=== PATIENT | male | born 1980 | race Caucasian/White ===

== ENCOUNTER 2019-02-17 21:04 | Emergency (ER) | payer OTHER ==
[2019-02-17 21:42] VITALS: PULSE 81
[2019-02-17] MEDS ORDERED: CIPROFLOXACIN HCL 500 MG TAB PO STA (22:13)
[2019-02-17] MEDS ORDERED: DIPH,PERTUS(ACELL)TETVAC-LF 0.5 ML VIAL IM ONE (22:13)
--- NOTE | 2019-02-17 22:38 | XR ---
EXAMINATION TYPE: XR foot complete LT DATE OF EXAM: 02/17/2019 COMPARISON: NONE HISTORY: Foreign body. Pain. TECHNIQUE: 3 views FINDINGS: There is a 15 x 5 mm linear area of metallic foreign bodies in the soft tissues at the plan tar aspect of the forefoot at the distal second metatarsal. I see no fracture nor dislocation. Metatarsals are intact. Joint spaces are normal. IMPRESSION: Multiple small metallic foreign bodies.
[2019-02-17] MEDS ORDERED: CEPHALEXIN 500MG STARTER PACK 4 CAP BTL PO STA (23:14)
[2019-02-17] MEDS ORDERED: CEPHALEXIN 500 MG CAP PO STA (23:14)
--- NOTE | 2019-02-17 23:15 | XR ---
EXAMINATION TYPE: XR foot complete LT DATE OF EXAM: 02/17/2019 COMPARISON: Today HISTORY: Foreign body TECHNIQUE: 3 views FINDINGS: There is persistent foreign body metallic linear tiny densities in the plantar aspect of th e forefoot in the soft tissues. There is no significant change compared to the recent exam. I see no fracture. There are plantar and Achilles calcaneal spurs. Metatarsals are intact. IMPRESSION: Foreign bodies unchanged. No fracture.
[2019-02-17] MEDS ORDERED: cefTRIAXone 1,000 MG VIAL (IM USE) IM STA (23:23)
--- NOTE | 2019-02-17 23:34 | ED ---
General Adult HPI - General Chief complaint: Extremity Injury, Lower Stated complaint: Feura Bush went threw foot, [facility] Time Seen by Provider: 02/17/19 22:13 Source: patient, RN notes reviewed Mode of arrival: ambulatory Limitations: no limitations - History of Present Illness Initial comments: 38-year-old male patient with the chief complaint of stepping on a bolt in the left foot. Patient reports that he was working, wearing work boots, stopped an exposed bolt which penetrated through the soles into the plantar aspect of his left foot. Patient reports this occurred approximate 4 PM today. Patient has a history of diabetes. Patient denies any other complaints. Does not know Date of last tetanus. Systemic: Pt denies fatigue, fever/chills, rash. Pt denies weakness, night sweats, weight loss. Neuro: Pt denies headache, visual disturbances, syncope or pre-syncope. HEENT: Pt denies ocular discharge or irritation, otalgia, rhinorrhea, pharyngitis or notable lymphadenopathy. Cardiopulmonary: Pt denies chest pain, SOB, heart palpitations, dyspnea on exertion. Abdominal/GI: Pt denies abdominal pain, n/v/d. : Pt denies dysuria, burning w/ urination, frequency/urgency. Denies new onset urinary or bowel incontinence. MSK: Pt denies myalgia, loss of strength or function in extremities. Neuro: Pt denies new onset weakness, paresthesias. - Related Data Previous Rx's Medication Instructions Recorded Cephalexin [Keflex] 500 mg PO Q6HR 7 Days #28 cap 02/17/19 Ciprofloxacin HCl [Cipro] 500 mg PO Q12HR 7 Days #14 day 02/17/19 Allergies Allergy/AdvReac Type Severity Reaction Status Date / Time No Known Allergies Allergy Verified 02/17/19 21:42 Review of Systems ROS Statement: Those systems with pertinent positive or pertinent negative responses have been documented in the HPI. ROS Other: All systems not noted in ROS Statement are negative. Past Medical History Past Medical History: Thyroid Disorder History of Any Multi-Drug Resistant Organisms: None Reported Past Surgical History: Cholecystectomy, Orthopedic Surgery Past Psychological History: No Psychological Hx Reported Smoking Status: Current every day smoker Past Alcohol Use History: None Reported Past Drug Use History: None Reported General Exam - General Exam Comments Initial Comments: Constitutional: NAD, AOX3, Pt has pleasant affect. HEENT: NC/AT, trachea midline, neck supple, no lymphadenopathy. Posterior pharynx non erythematous, without exudates. External ears appear normal, without discharge. Mucous membranes moist. Eyes PERRLA, EOM intact. There is no scleral icterus. No pallor noted. Cardiopulmonary: RRR, no murmurs, rubs or gallops, no JVD noted. Lungs CTAB in anterior and posterior grijalva. No peripheral edema. Abdominal exam: Abdomen soft and non-distended. Abdomen non-tender to palpation in all 4 quadrants. Bowel sounds active in LLQ. No hepatosplenomegaly. No ecchymosis Neuro: CN II-XII grossly intact. No nuchal rigidity. No raccon eyes, no andre sign, no hemotympanum. No cervical spinal tenderness. MSK: 1 x 1 cm area circular laceration. Skin flap, not open. Superficial metallic foreign bodies removed. There is irrigated with 1 L normal saline. No posterior calf tenderness bilaterally, homans sign negative bilaterally. Posterior tibialis and radial pulse +2 bilaterally. Sensation intact in upper and lower extremities. Full active ROM in upper and lower extremities, 5/5 stregnth. Limitations: no limitations Course Vital Signs 02/17/19 21:40 Temperature 99.0 F Pulse Rate 81 Respiratory 16 Rate Blood Pressure 134/86 O2 Sat by Pulse 95 Oximetry Medical Decision Making - Medical Decision Making 38-year-old male patient with the chief complaint of stepping on a bolt in the left foot. Patient reports that he was working, wearing work boots, stopped an exposed bolt which penetrated through the soles into the plantar aspect of his left foot. Patient reports this occurred approximate 4 PM today. Patient has a history of diabetes. Patient denies any other complaints. Does not know Date of last tetanus. Patient vital signs stable, afebrile. Physical exam displayed. 1 x 1 cm area circular laceration. Skin flap, not open. Vigorously irrigated. Superficial metallic foreign bodies removed. Plain film of foot displayed multiple metallic foreign bodies. After irrigation repeat film did not display significant change. Patient initiated on ciprofloxacin, cephalosporin. Patient ministered 1 g Rocephin in ED. As well as ciprofloxacin. Patient will discharge on outpatient ciprofloxacin and Keflex. Patient will have triggered return precautions for infection. This was described in depth. Patient will follow up with orthopedic consult tomorrow. And will return to ER if condition worsens. Case discussed with Dr. Knight. Disposition Clinical Impression: Soft tissues foreign body Disposition: HOME SELF-CARE Condition: Stable Instructions (If sedation given, give patient instructions): Soft Tissue Foreign Body (ED) Additional Instructions: Patient to adhere to previously discussed treatment plan and will take medication(s) as directed. Patient to follow up with PCP in 1-2 days. Patient to return to ED if symptoms do not improve. Follow-up with orthopedic consult tomorrow. Take antibiotics as directed. If any signs of infection develop return immediately to emergency department. Prescriptions: Ciprofloxacin HCl [Cipro] 500 mg PO Q12HR 7 Days #14 day Cephalexin [Keflex] 500 mg PO Q6HR 7 Days #28 cap Is patient prescribed a controlled substance at d/c from ED?: No Referrals: Ruslan Sparrow MD [Primary Care Provider] - 1-2 days Carroll Ibanez MD [STAFF PHYSICIAN] - 1-2 days
[2019-02-17 23:52] VITALS: BP 136/56; RESP 20; TEMP 98.2
== END 2019-02-17 23:50 | disposition home or self-care (01) ==
LOC: EC 21:04
DX: M79.5 Residual foreign body in soft tissue (principal); Z23 Encounter for immunization; E11.9 Type 2 diabetes mellitus without complications; F17.200 Nicotine dependence, unspecified, uncomplicated; W45.8XXA Other foreign body or object entering through skin, initial encounter; Y92.69 Other specified industrial and construction area as the place of occurrence of the external cause; Y99.0 Civilian activity done for income or pay
CPT/HCPCS: 73630; 90715; 99283; 10120; 90471; 96372; J0696

== ENCOUNTER 2020-09-23 09:36 | Emergency (ER) | payer OTHER ==
[2020-09-23 09:57] VITALS: PULSE 98; RESP 18; TEMP 98
--- NOTE | 2020-09-23 10:59 | XR ---
EXAMINATION TYPE: XR shoulder complete RT DATE OF EXAM: 09/23/2020 CLINICAL HISTORY: Fall injury with pain TECHNIQUE: Three views of the right shoulder are obtained. COMPARISON: None. FINDINGS: There is no acute fracture/dislocation evident in the right shoulder. The acromioclavicul ar and glenohumeral joint spaces appear within normal limits. Overlying clothing material is present IMPRESSION: There is no acute fracture or dislocation in the right shoulder.
--- NOTE | 2020-09-23 11:08 | CT ---
EXAMINATION TYPE: CT brain alphonso perez DATE OF EXAM: 09/23/2020 COMPARISON: NONE HISTORY: Injury with headache and neck pain CT DLP: 1932.8 mGycm. Automated Exposure Control for Dose Reduction was Utilized. TECHNIQUE: CT scan of the head and cervical spine are performed without contrast. FINDINGS: There is no acute intracranial hemorrhage, mass effect, or midline shift identified. The ventricles and sulci are within normal limits in size. The roth-white matter differentiation is main tained. The globes are intact and the visualized sinuses are clear. The calvarium is intact. Cervical spine is visualized in its entirety from C1 through upper thoracic levels and demonstrates s atisfactory alignment without evidence of acute fracture or dislocation. Prevertebral soft tissue ap pears within normal limits. The C1-C2 articulation is within normal limits on the coronal images. Ve rtebral body heights and disc space heights fairly well maintained. Overlying soft tissues are unrema rkable. Lung apices are clear. IMPRESSION: 1. There is no acute fracture or dislocation evident in the cervical spine. 2. No acute intracranial hemorrhage or midline shift is seen.
--- NOTE | 2020-09-23 11:12 | ED ---
Fall HPI - General Chief Complaint: Fall Stated Complaint: Head Injury Time Seen by Provider: 09/23/20 09:59 Source: patient Mode of arrival: ambulatory - History of Present Illness Initial Comments: 40-year-old male presenting to the ER today for chief complaint of fall. Patient states that he was on a scissor lift that has a bucket he states he was inside the pocket about 12 feet high when the machine was tipped over by another machine. He states he hit his head on [place] within the bucket he states that he did not lose consciousness he denies any headaches nausea vomiting visual changes weakness or sensation deficits he states is a small scratch over his right shoulder but no pain with range of motion or difficulty ranging right decrease in strength he denies any neck pain he states he did not have any direct trauma to his chest or abdomen. He denies any other areas of pain. he states he feels fine. denies anticogaulation therapy. - Related Data Home Medications Medication Instructions Recorded Confirmed Fenofibrate,Micronized 134 mg PO DAILY 09/23/20 09/23/20 [Fenofibrate] Thyroid,Pork [[place] Thyroid] 30 mg PO DAILY 09/23/20 09/23/20 Thyroid,Pork [[place] Thyroid] 180 mg PO DAILY 09/23/20 09/23/20 Allergies Allergy/AdvReac Type Severity Reaction Status Date / Time No Known Allergies Allergy Verified 09/23/20 11:02 Review of Systems ROS Statement: Those systems with pertinent positive or pertinent negative responses have been documented in the HPI. ROS Other: All systems not noted in ROS Statement are negative. Past Medical History Past Medical History: Thyroid Disorder History of Any Multi-Drug Resistant Organisms: None Reported Past Surgical History: Cholecystectomy, Orthopedic Surgery Past Psychological History: No Psychological Hx Reported Smoking Status: Never smoker Past Alcohol Use History: None Reported, Occasional Past Drug Use History: None Reported General Exam - General Exam Comments Initial Comments: General: The patient is awake and alert, in no distress Eye: +3 mm pupils are equal, round and reactive to light, extra-ocular movements are intact. No nystagmus. There is normal conjunctiva bilaterally. No signs of icterus. Ears, nose, mouth and throat: There are moist mucous membranes and no oral lesions. Neck: The neck is supple, there is no tenderness or JVD. Cardiovascular: There is a regular rate and rhythm. No murmur, rub or gallop is appreciated. Respiratory: Lungs are clear to auscultation, respirations are non-labored, breath sounds are equal. No wheezes, stridor, rales, or rhonchi. Gastrointestinal: Soft, non-distended, non-tender abdomen without masses or organomegaly noted. There is no rebound or guarding present. Musculoskeletal: Normal ROM, no tenderness. Strength 5/5. Sensation intact. Radial pulses equal bilaterally 2+. Neurological: A&O x 3. CN II-XII intact, There are no obvious motor or sensory deficits. Coordination appears grossly intact. Speech is normal. Skin: Skin is warm and dry and no rashes.2.5cm linear lacereation of right parietal region. small superficial abrasion right shoulder. Psychiatric: Cooperative, appropriate mood & affect, normal judgment. Limitations: no limitations Course Vital Signs 09/23/20 09/23/20 09:54 11:27 Temperature 98.0 F 98.0 F Pulse Rate 98 98 Respiratory 18 18 Rate Blood Pressure 129/69 132/87 O2 Sat by Pulse 96 96 Oximetry Medical Decision Making - Medical Decision Making CT (-). XR (-). superficial abrasion shoulder. small laceration scalp. cleansed closed with natanael. pt has no signs of concussion. no neck pain. entire body evaluated with clothes off, no bruising on back, abdomen or chest no pain to palpation of extremities. patient appears well nontoxic and at this time I feel he is stable for discharge with pcp f/u. triston agreeable discharged appearing well> Dr Lyon agreeable to care plan. Disposition Clinical Impression: Scalp laceration, Fall, Abrasion Disposition: HOME SELF-CARE Condition: Good Instructions (If sedation given, give patient instructions): Abrasion (ED), Staple Care (ED) Additional Instructions: Please use medication as discussed. Please follow-up with family doctor in the next 2 days, recommend removal staple in 7 days. Please return to emergency room if the symptoms increase or worsen or for any other concerns. Is patient prescribed a controlled substance at d/c from ED?: No Referrals: Salvador Sparrow MD [Primary Care Provider] - 1-2 days Time of Disposition: 11:12
[2020-09-23 11:28] VITALS: BP 132/87
== END 2020-09-23 11:28 | disposition home or self-care (01) ==
LOC: EC 09:36
DX: S01.01XA Laceration without foreign body of scalp, initial encounter (principal); S40.211A Abrasion of right shoulder, initial encounter; W17.89XA Other fall from one level to another, initial encounter
CPT/HCPCS: 12001; 70450; 72125; 99284

== ENCOUNTER → 2023-05-22 | Outpatient (CLI) | payer OTHER ==
[2023-05-22 15:15] LABS: HCT 45.3 % (39.6-50.0); HGB 14.8 g/dL (13.0-17.0); MCH 29.3 pg (27.0-32.0); MCHC 32.7 g/dL (32.0-37.0); MCV 89.7 FL (80.0-97.0); Mean Platelet Volume 9.5 FL (9.5-12.2); NRBC Per 100 WBC 0 X 10*3/uL (0.00-0.01); Platelet Count 308 X 10*3/uL (140-440); RBC 5.05 X 10*6/uL (4.40-5.60); RDW 13.2 % (11.5-14.5); WBC 5.47 X 10*3/uL (4.50-10.00)
[2023-05-22 15:37] LABS: BUN/Creat Ratio 17.67 Ratio (12.00-20.00); Blood Urea Nitrogen 15.9 mg/dL (9.0-27.0); Carbon Dioxide 23.8 mmol/L (21.6-31.8); Chloride 105 mmol/L (96-109); Glucose 100 mg/dL (70-110); Phosphorus 2.2 mg/dL (2.4-5.1); Potassium 4.4 mmol/L (3.5-5.5); Sodium 140 mmol/L (135-145)
[2023-05-22 15:38] LABS: ALT 46 U/L (10-49); AST 22 U/L (14-35); Albumin 4.4 g/dL (3.8-4.9); Albumin/Globulin Ratio 1.83 Ratio (1.60-3.17); Alkaline Phosphatase 75 U/L (41-126); Calcium 10.4 mg/dL (8.7-10.3); Globulin 2.4 g/dL (1.6-3.3); T4, Free (Free Thyroxine) 1.06 ng/dL (0.80-1.80); Total Bilirubin 0.6 mg/dL (0.3-1.2); Total Protein 6.8 g/dL (6.2-8.2)
== END | disposition home or self-care (01) ==
LOC: LABWHC1 09:49
PROVIDERS: ATTEND Nurse Practitioner
DX: E03.9 Hypothyroidism, unspecified (principal); E21.2 Other hyperparathyroidism; E55.9 Vitamin D deficiency, unspecified; E78.5 Hyperlipidemia, unspecified
CPT/HCPCS: 36415; 80053; 82306; 82607; 83036; 83735; 83970; 84100; 84439; 84443; 84480; 85027